=== PATIENT | female | born 1980 | race Caucasian/White ===

== ENCOUNTER 2016-11-06 12:12 | Emergency (ER) | payer SELFPAY ==
[~2016-11-06] VITALS: Ht 170.2 cm; Wt 61.2 kg
[2016-11-06] MEDS ORDERED: ONDANSETRON PF 4 MG/2 ML VIAL. IV ONE (14:30)
[2016-11-06] MEDS ORDERED: IV NORMAL SALINE 1000ML BAG 1,000 ML IV ONE (14:30)
[2016-11-06] MEDS ORDERED: HYDROmorphone 2 MG/ML VIAL IV/SQ PRN (14:30)
[2016-11-06 14:55] LABS: BASO % 0 % (0-3); EOS % 2 % (0-3); HEMATOCRIT 41.5 % (36.0-47.0); HEMOGLOBIN 13.7 g/dL (12.0-15.5); LYMPH # 1.5 x10^3/uL (1.0-4.8); LYMPH % 20 % (24-48); MEAN CORPUSCULAR HEMOGLOBIN 31 pg (25-35); MEAN CORPUSCULAR HGB CONC 33 g/dL (31-37); MEAN CORPUSCULAR VOLUME 93 fL (79-100); MONO % 4 % (0-9); NEUT % 74 % (31-73); PLATELET COUNT 338 x10^3/uL (140-400); RED BLOOD COUNT 4.47 x10^6/uL (3.50-5.40); WHITE BLOOD COUNT 7.4 x10^3/uL (4.0-11.0)
[2016-11-06 14:56] LABS: BILIRUBIN,URINE NEGATIVE (NEG); GLUCOSE,URINE NEGATIVE (NEG); NITRITE,URINE NEGATIVE (NEG); PH,URINE 6.5; PROTEIN,URINE NEGATIVE (NEG-TRACE); UROBILINOGEN,URINE 0.2 mg/dL (0.2 mg/dL)
--- NOTE | 2016-11-06 15:00 | PHYS DOC ---
Past Medical History Past Medical History: Migraines, Seizure Alcohol Use: None Drug Use: Marijuana Adult General Chief Complaint Chief Complaint: PAIN ON URINATION HPI HPI 36 yo F presenting to the ED today with pain on urination and bilateral flank pain. She was seen previously in [place] and diagnosed with urinary tract infection. She was started on ciprofloxacin however has not had improved relief. The pain is moderate intermittent nonradiating without alleviating factors. She does have dysuria and polyuria as well. She denies fevers or chills she denies nausea or vomiting. Review of systems is negative for migratory pain, chest pain shortness of breath nausea or vomiting. All other review of systems is negative unless otherwise noted in history of present illness. ED course: 36-year-old female presenting to the emergency department today with polyuria and bilateral flank pain suggestive of urinary tract infection/ pyelonephritis. Patient given IV Rocephin fluids nausea and pain medications in the emergency department. Urinalysis ordered along with blood work. Urinalysis and blood work unremarkable including a negative test. Patient feeling better on reexamination. It is unclear at this time whether because of the patient's ciprofloxacin use the patient's urinalysis is not suggestive of infection. Given her changing symptomatology I will initiate Bactrim therapy and have her follow-up with her doctor in the next 4-5 days. They were to return if their symptoms worsened or if they were concerned for any reason. Face -to-face discharge instructions and return precautions were given. Patient's questions were answered to their satisfaction. Patient is comfortable plan. Review of Systems Review of Systems SEE ABOVE. Current Medications Current Medications Current Medications Medications (Trade) Dose Ordered Sig/Noreen Start Time Stop Time Status Last Admin Dose Admin Ceftriaxone Sodium 50 ml @ 100 mls/hr 1X ONCE 11/06/16 14:30 11/06/16 14:59 DC 11/06/16 14:51 100 MLS/HR Hydromorphone HCl (Dilaudid) 0.5 mg PRN Q15MIN PRN 11/06/16 14:30 11/07/16 14:29 Ondansetron HCl (Zofran) 4 mg 1X ONCE 11/06/16 14:30 11/06/16 14:31 DC 11/06/16 14:50 4 MG Sodium Chloride 1,000 ml @ 1,000 mls/hr 1X ONCE 11/06/16 14:30 11/06/16 15:29 11/06/16 14:51 1,000 MLS/HR Allergies Allergies Allergies Coded Allergies Type Severity Reaction Last Updated Verified levetiracetam Allergy Intermediate 11/06/16 Yes metoclopramide Allergy Intermediate 11/06/16 Yes morphine Adverse Reaction Intermediate Itching 11/06/16 Yes Physical Exam Physical Exam SEE ABOVE Constitutional: Well developed, well nourished, no acute distress, non-toxic appearance. [] HENT: Normocephalic, atraumatic, bilateral external ears normal, oropharynx moist, no oral exudates, nose normal. [] Eyes: PERRLA, EOMI, conjunctiva normal, no discharge. [] Neck: Normal range of motion, no tenderness, supple, no stridor. [] Cardiovascular:Heart rate regular rhythm, no murmur [] Lungs & Thorax: Bilateral breath sounds clear to auscultation [] Abdomen: Bowel sounds normal, soft, no tenderness, no masses, no pulsatile masses. [] Skin: Warm, dry, no erythema, no rash. [] Back: mild bilateral CVA tenderness. Extremities: No tenderness, no cyanosis, no clubbing, ROM intact, no edema. [] Neurologic: Alert and oriented X 3, normal motor function, normal sensory function, no focal deficits noted. [] Psychologic: Affect normal, judgement normal, mood normal. [] Current Patient Data Vital Signs Vital Signs Date Time Temp Pulse Resp B/P (MAP) Pulse Ox O2 Delivery O2 Flow Rate FiO2 11/06/16 13:45 98.1 88 18 159/113 (128) 100 Room Air 98.1 Lab Values Laboratory Tests Test 11/06/16 13:02 11/06/16 14:40 POC Urine HCG, Qualitative Hcg negative (Negative) White Blood Count 7.4 x10^3/uL (4.0-11.0) Red Blood Count 4.47 x10^6/uL (3.50-5.40) Hemoglobin 13.7 g/dL (12.0-15.5) Hematocrit 41.5 % (36.0-47.0) Mean Corpuscular Volume 93 fL (79-100) Mean Corpuscular Hemoglobin 31 pg (25-35) Mean Corpuscular Hemoglobin Concent 33 g/dL (31-37) Red Cell Distribution Width 16.0 % (11.5-14.5) H Platelet Count 338 x10^3/uL (140-400) Neutrophils (%) (Auto) 74 % (31-73) H Lymphocytes (%) (Auto) 20 % (24-48) L Monocytes (%) (Auto) 4 % (0-9) Eosinophils (%) (Auto) 2 % (0-3) Basophils (%) (Auto) 0 % (0-3) Neutrophils # (Auto) 5.5 x10^3uL (1.8-7.7) Lymphocytes # (Auto) 1.5 x10^3/uL (1.0-4.8) Monocytes # (Auto) 0.3 x10^3/uL (0.0-1.1) Eosinophils # (Auto) 0.1 x10^3/uL (0.0-0.7) Basophils # (Auto) 0.0 x10^3/uL (0.0-0.2) Urine Collection Type Unknown Urine Color Yellow Urine Clarity Clear Urine pH 6.5 Urine Specific [place] 1.015 Urine Protein Negative mg/dL (NEG-TRACE) Urine Glucose (UA) Negative mg/dL (NEG) Urine Ketones (Stick) Negative mg/dL (NEG) Urine Blood Negative (NEG) Urine Nitrite Negative (NEG) Urine Bilirubin Negative (NEG) Urine Urobilinogen Dipstick 0.2 mg/dL (0.2 mg/dL) Urine Leukocyte Esterase Negative (NEG) Urine RBC 0 /HPF (0-2) Urine WBC Occ /HPF (0-4) Urine Squamous Epithelial Cells Mod /LPF Urine Bacteria Few /HPF (0-FEW) Urine Mucus Slight /LPF Sodium Level 141 mmol/L (136-145) Potassium Level 4.9 mmol/L (3.5-5.1) Chloride Level 106 mmol/L (98-107) Carbon Dioxide Level 28 mmol/L (21-32) Anion Gap 7 (6-14) Blood Urea Nitrogen 12 mg/dL (7-20) Creatinine 0.7 mg/dL (0.6-1.0) Estimated GFR (Cockcroft-Gault) 95.8 Glucose Level 98 mg/dL (70-99) Calcium Level 9.0 mg/dL (8.5-10.1) Laboratory Tests 11/06/16 14:40 Laboratory Tests 11/06/16 14:40 EKG EKG [] Radiology/Procedures Radiology/Procedures [] Course & Med Decision Making Course & Med Decision Making Pertinent Labs and Imaging studies reviewed. (See chart for details) [] Dragon Disclaimer Dragon Disclaimer This electronic medical record was generated, in whole or in part, using a voice recognition dictation system. Departure Departure Impression: Primary Impression: Dysuria Disposition: HOME, SELF-CARE Condition: STABLE Referrals: NO PCP (PCP) MESSI WEINER MD Patient Instructions: Urinary Tract Infection Additional Instructions: Thank you for allowing us to participate in your care today. Followup with your primary care physician in 3 days if your symptoms do not improve. Call your Primary Doctor tomorrow and inform them of your visit today. If you do not have a primary care provider you can ask for a list of our primary care providers. Return to the emergency department you have any new or concerning findings. This should be evaluated by the primary care physician and any necessary consulting services for continued management within a few days after discharge. Return to emergency room if you have any new or concerning symptoms including but not limited to fever, chills, nausea, vomiting, intractable pain, any new rashes, chest pain, shortness of air, uncontrolled bleeding, difficulty breathing, and/or vision loss. Scripts Ondansetron (ZOFRAN ODT) 4 Mg Tab.rapdis 1 TAB SL PRN Q8HRS Y for NAUSEA, #6 TAB Prov: LUIS PEREZ MD 11/06/16 Hydrocodone Bit/Acetaminophen (HYDROCODONE-APAP 5-325 ) 1 Each Tablet 1 TAB PO PRN Q6HRS Y for PAIN, #15 TAB 0 Refills Be careful as this medication may cause you to be drowsy or tired. Do not drive on this medication. Prov: LUIS PEREZ MD 11/06/16 Sulfamethoxazole/Trimethoprim (BACTRIM DS TABLET) 1 Each Tablet 1 TAB PO BID, #14 TAB Prov: LUIS PEREZ MD 11/06/16 LUIS PEREZ MD Nov 06, 2016 15:00
[2016-11-06 15:06] LABS: CREATININE 0.7 mg/dL (0.6-1.0); GFR 95.8; POTASSIUM 4.9 mmol/L (3.5-5.1)
[2016-11-06 15:13] LABS: BACTERIA,URINE FEW /HPF (0-FEW); RBC,URINE 0 /HPF (0-2); SQUAMOUS EPITHELIAL CELL,UR MOD /LPF; WBC,URINE OCC /HPF (0-4)
[2016-11-06] MEDS ORDERED: ONDA4TAB10 SL (15:18)
[2016-11-06] MEDS ORDERED: HYDR-2758 PO (15:18)
[2016-11-06] MEDS ORDERED: SULF1TAB24 PO (15:18)
[2016-11-06 15:50] VITALS: BP 142/72
== END 2016-11-06 16:09 | disposition home or self-care (01) ==
LOC: ER 12:12
DX: R30.0 Dysuria (principal); R10.9 Unspecified abdominal pain; R35.8 Other polyuria; G43.909 Migraine, unspecified, not intractable, without status migrainosus; Z88.8 Allergy status to other drugs, medicaments and biological substances; Z88.5 Allergy status to narcotic agent
CPT/HCPCS: 36415; 80048; 81001; 81025; 85025; 96365; 96375; 99284; J0690; J1170; J2405; J7030

== ENCOUNTER 2016-11-09 11:26 | Emergency (ER) | payer SELFPAY ==
[~2016-11-09] VITALS: Ht 170.2 cm; Wt 61.2 kg
[~2016-11-09 11:26] MED LIST: HYDR-2758 PO; ONDA4TAB10 SL; SULF1TAB24 PO
[2016-11-09] MEDS ORDERED: IV NORMAL SALINE 1000ML BAG 1,000 ML IV ONE (11:45)
[2016-11-09] MEDS ORDERED: KETOROLAC TROMETHAMINE 30 MG/ML INJ. IV ONE (11:45)
--- NOTE | 2016-11-09 11:53 | PHYS DOC ---
Past Medical History Past Medical History: Migraines, Seizure Alcohol Use: None Drug Use: Marijuana Adult General Chief Complaint Chief Complaint: ABDOMINAL PAIN HPI HPI Patient is a 36 year old female who presents with abdominal pain. Patient states last Wednesday she was diagnosed with UTI to urgent care and prescribed Keflex however throughout the week the pain got worse therefore came to [place] ER on Wednesday and was reevaluated and discharged on Bactrim. Patient returns today for increasing abdominal pain and symptoms. Patient states she's had low-grade fevers at home as been taking Tylenol as needed. Patient has been taking the Bactrim as prescribed. Patient denies any nausea or vomiting. Patient denies any chest pain or shortness of breath. Patient and plans of generalized abdominal pain. Patient denies any vaginal discharge and denies . Review of Systems Review of Systems GEN: Denies fevers, chills, sweats HEENT: Denies blurred vision, sore throat CV: Denies chest pain RESP: Denies shortness of air, cough GI: Abdominal pain NEURO: Denies confusion, dizziness MSK: Denies weakness, joint pain/swelling Current Medications Current Medications Current Medications Medications (Trade) Dose Ordered Sig/Noreen Start Time Stop Time Status Last Admin Dose Admin Fentanyl Citrate (Fentanyl 2ml Vial) 50 mcg 1X ONCE 11/09/16 14:00 11/09/16 14:01 DC 11/09/16 13:53 50 MCG Iohexol (Omnipaque 300 Mg/ml) 75 ml 1X ONCE 11/09/16 12:30 11/09/16 12:31 DC 11/09/16 12:35 75 ML Ketorolac Tromethamine (Toradol) 30 mg 1X ONCE 11/09/16 11:45 11/09/16 11:50 DC 11/09/16 12:03 30 MG Sodium Chloride 1,000 ml @ 1,000 mls/hr 1X ONCE 11/09/16 11:45 11/09/16 12:44 DC 11/09/16 12:00 1,000 MLS/HR Allergies Allergies Allergies Coded Allergies Type Severity Reaction Last Updated Verified levetiracetam Allergy Intermediate 11/06/16 Yes metoclopramide Allergy Intermediate 11/06/16 Yes morphine Adverse Reaction Intermediate Itching 11/06/16 Yes Physical Exam Physical Exam GEN.: No apparent distress. Alert and oriented. HEENT: Head is normocephalic, atraumatic NECK: Supple. LUNGS: CTAB. HEART: RRR, S1, S2 present. Peripheral pulses intact ABDOMEN: Soft, generalized tenderness palpation, no focal tenderness, no rebound tenderness nondistended. Positive bowel sounds. EXTREMITIES: Without any cyanosis. NEUROLOGIC: Normal speech, normal tone PSYCHIATRIC: Normal affect, normal mood. SKIN: No ulcerations Current Patient Data Vital Signs Vital Signs Date Time Temp Pulse Resp B/P (MAP) Pulse Ox O2 Delivery O2 Flow Rate FiO2 11/09/16 16:49 81 18 122/84 (97) 100 Room Air 11/09/16 11:30 98.3 98.3 Lab Values Laboratory Tests Test 11/09/16 10:43 11/09/16 11:30 11/09/16 11:50 11/09/16 13:02 POC Urine HCG, Qualitative Hcg negative (Negative) Urine Collection Type Unknown Urine Color Yellow Urine Clarity Cloudy Urine pH 7.0 Urine Specific [place] 1.010 Urine Protein Negative mg/dL (NEG-TRACE) Urine Glucose (UA) Negative mg/dL (NEG) Urine Ketones (Stick) Negative mg/dL (NEG) Urine Blood Negative (NEG) Urine Nitrite Negative (NEG) Urine Bilirubin Negative (NEG) Urine Urobilinogen Dipstick 0.2 mg/dL (0.2 mg/dL) Urine Leukocyte Esterase Trace (NEG) Urine RBC 0 /HPF (0-2) Urine WBC 1-4 /HPF (0-4) Urine Squamous Epithelial Cells Many /LPF Urine Bacteria Moderate /HPF (0-FEW) Urine Opiates Screen Pos (NEG) Urine Methadone Screen Neg (NEG) Urine Barbiturates Neg (NEG) Urine Phencyclidine Screen Neg (NEG) Urine Amphetamine/Methamphetamine Neg (NEG) Urine Benzodiazepines Screen Neg (NEG) Urine Cocaine Screen Neg (NEG) Urine Cannabinoids Screen Pos (NEG) Urine Ethyl Alcohol Neg (NEG) White Blood Count 6.6 x10^3/uL (4.0-11.0) Red Blood Count 4.51 x10^6/uL (3.50-5.40) Hemoglobin 13.7 g/dL (12.0-15.5) Hematocrit 41.6 % (36.0-47.0) Mean Corpuscular Volume 92 fL (79-100) Mean Corpuscular Hemoglobin 30 pg (25-35) Mean Corpuscular Hemoglobin Concent 33 g/dL (31-37) Red Cell Distribution Width 16.1 % (11.5-14.5) H Platelet Count 339 x10^3/uL (140-400) Neutrophils (%) (Auto) 64 % (31-73) Lymphocytes (%) (Auto) 23 % (24-48) L Monocytes (%) (Auto) 7 % (0-9) Eosinophils (%) (Auto) 5 % (0-3) H Basophils (%) (Auto) 1 % (0-3) Neutrophils # (Auto) 4.2 x10^3uL (1.8-7.7) Lymphocytes # (Auto) 1.5 x10^3/uL (1.0-4.8) Monocytes # (Auto) 0.5 x10^3/uL (0.0-1.1) Eosinophils # (Auto) 0.3 x10^3/uL (0.0-0.7) Basophils # (Auto) 0.1 x10^3/uL (0.0-0.2) Sodium Level 138 mmol/L (136-145) Potassium Level 4.9 mmol/L (3.5-5.1) Chloride Level 102 mmol/L (98-107) Carbon Dioxide Level 25 mmol/L (21-32) Anion Gap 11 (6-14) Blood Urea Nitrogen 10 mg/dL (7-20) Creatinine 0.9 mg/dL (0.6-1.0) Estimated GFR (Cockcroft-Gault) 71.7 BUN/Creatinine Ratio 11 (6-20) Glucose Level 106 mg/dL (70-99) H Calcium Level 8.5 mg/dL (8.5-10.1) Total Bilirubin 0.1 mg/dL (0.2-1.0) L Aspartate Amino Transferase (AST) 18 U/L (15-37) Alanine Aminotransferase (ALT) 22 U/L (14-59) Alkaline Phosphatase 58 U/L (46-116) Total Protein 7.5 g/dL (6.4-8.2) Albumin 3.9 g/dL (3.4-5.0) Albumin/Globulin Ratio 1.1 (1.0-1.7) Lipase 116 U/L (73-393) Lactic Acid Level 1.9 mmol/L (0.4-2.0) Laboratory Tests 11/09/16 11:50 Laboratory Tests 11/09/16 11:50 Microbiology 11/09/16 Wet Prep - Final, Complete EKG EKG [] Radiology/Procedures Radiology/Procedures CT abd and pelvis: Impression: 1. Mildly distended gallbladder with mild prominent appearing common bile duct. Correlate with lab values. Otherwise no acute intra-abdominal findings.[] Ultrasound of the right upper quadrant: Mildly dilated common bile duct but no signs of acute cholecystitis Ultrasound the pelvis: NAD Course & Med Decision Making Course & Med Decision Making Pertinent Labs and Imaging studies reviewed. (See chart for details) ED course Patient was seen and examined the emergency room, CBC, CMP, UA, urine , CT scan abdomen and pelvis were ordered 1725: Lab results and ultrasound, CT scan results were discussed with the patient. Patient states she's having no abnormal vaginal discharge and the vaginal discharge she's having is normal for her. Patient denies any high risk sexual intercourse and states she's been with the same partner for the past couple years. Patient denies any history of STDs. Offer the patient prophylactic treatment for the STDs she has declined and explained to her that we will notify her if they are positive. Patient is wanted to go home. Recommended short-term follow-up with her [employer] and PCP. MDM: After reviewing the chart, CC/HPI/PMH, physical exam, [lab results], [ radiological results], I do not believe the patient has an intra-abdominal emergency warranting further workup and/or admission at this time. Patient is stable for discharge. Patient is ready go home. Recommended patient continue with her antibiotics treatment for her UTI. Additional verbal discharge instructions were provided to the patient and that if symptoms get worse or any new symptoms arise that are worrisome to the patient she is to return to the emergency room immediately [] Dragon Disclaimer Dragon Disclaimer This electronic medical record was generated, in whole or in part, using a voice recognition dictation system. Departure Departure Impression: Primary Impression: Abdominal pain Disposition: 01 HOME, SELF-CARE Condition: IMPROVED Referrals: NO PCP (PCP) Patient Instructions: Abdominal Pain, [id number] Additional Instructions: Please follow-up with your family physician in the next one to 2 days, please continue the antibiotics as previously prescribed, return if symptoms increase. MITZY ESPITIA DO Nov 09, 2016 11:53
[2016-11-09 12:07] LABS: BARBITURATES NEG (NEG); BENZODIAZEPINES NEG (NEG); CANNABINOIDS POS (NEG); COCAINE NEG (NEG); METHADONE NEG (NEG); OPIATES POS (NEG); PHENCYCLIDINE NEG (NEG)
[2016-11-09 12:09] LABS: BILIRUBIN,URINE NEGATIVE (NEG); GLUCOSE,URINE NEGATIVE (NEG); NITRITE,URINE NEGATIVE (NEG); PROTEIN,URINE NEGATIVE (NEG-TRACE); UROBILINOGEN,URINE 0.2 mg/dL (0.2 mg/dL)
[2016-11-09 12:10] LABS: BASO # 0.1 x10^3/uL (0.0-0.2); BASO % 1 % (0-3); EOS % 5 % (0-3); HEMATOCRIT 41.6 % (36.0-47.0); HEMOGLOBIN 13.7 g/dL (12.0-15.5); LYMPH # 1.5 x10^3/uL (1.0-4.8); LYMPH % 23 % (24-48); MEAN CORPUSCULAR HEMOGLOBIN 30 pg (25-35); MEAN CORPUSCULAR HGB CONC 33 g/dL (31-37); MEAN CORPUSCULAR VOLUME 92 fL (79-100); MONO % 7 % (0-9); NEUT % 64 % (31-73); PLATELET COUNT 339 x10^3/uL (140-400); RED BLOOD COUNT 4.51 x10^6/uL (3.50-5.40); RED CELL DISTRIBUTION WIDTH 16.1 % (11.5-14.5); WHITE BLOOD COUNT 6.6 x10^3/uL (4.0-11.0)
[2016-11-09 12:12] LABS: CALCIUM 8.5 mg/dL (8.5-10.1); CREATININE 0.9 mg/dL (0.6-1.0); GFR 71.7; POTASSIUM 4.9 mmol/L (3.5-5.1)
[2016-11-09 12:18] LABS: ALBUMIN 3.9 g/dL (3.4-5.0); ALBUMIN/GLOBULIN RATIO 1.1 (1.0-1.7); TOTAL BILIRUBIN 0.1 mg/dL (0.2-1.0); TOTAL PROTEIN 7.5 g/dL (6.4-8.2)
[2016-11-09 12:21] LABS: BACTERIA,URINE MODERATE /HPF (0-FEW); RBC,URINE 0 /HPF (0-2); SQUAMOUS EPITHELIAL CELL,UR MANY /LPF
[2016-11-09] MEDS ORDERED: IOHEXOL 300 MG/ML 75 ML VIAL IV ONE (12:30)
--- NOTE | 2016-11-09 13:22 | RAD ---
Examination: CT of the abdomen pelvis with IV contrast History: History of abdominal pain, nausea, vomiting Technique: Axial CT images of the abdomen pelvis was performed with IV contrast with coronal and sagittal reformats are performed. Comparison: None available PQRS Compliance Statement: One or more of the following individualized dose reduction techniques were utilized for this examination: 1. Automated exposure control 2. Adjustment of the mA and/or kV according to patient size 3. Use of iterative reconstruction technique Findings: Visualized bibasal lungs grossly appears unremarkable. No evidence of free air identified in the abdomen. The visualized liver, spleen, adrenals grossly appears unremarkable. The gallbladder is mildly distended. The stomach is mildly distended. The visualized pancreas grossly appears unremarkable. There is mild prominent appearing common bile duct measuring 7 mm. The visualized pancreas grossly appears unremarkable. The bilateral kidneys enhance symmetrically. The stomach is mildly distended. The small bowel is nondilated. Feces and gas noted in the colon. The appendix is normal. Feces and gas noted in the colon throughout. Urinary bladder is mildly distended. Intrauterine contraceptive device is identified. Small cystic structure identified in the right adnexa measuring 1.2 cm likely an ovarian follicle. No evidence of free fluid identified in the pelvis. The caliber of the aorta grossly appears unremarkable. The bilateral kidneys enhance symmetrically. No evidence of lytic bony destructive lesion. Impression: 1. Mildly distended gallbladder with mild prominent appearing common bile duct. Correlate with lab values. Otherwise no acute intra-abdominal findings.
[2016-11-09] MEDS ORDERED: fentaNYL PF VIAL 100 MCG/2 ML VIAL IV ONE (14:00)
--- NOTE | 2016-11-09 16:59 | RAD ---
Examination: Ultrasound abdomen right upper quadrant History: History of abdominal pain Comparison: None available Findings: The visualized pancreas grossly appears unremarkable. The echogenicity of the liver grossly appears unremarkable. The right lobe of the liver measures 14.3 cm. No evidence of gallstones identified. The common bile duct measures 6.5 mm and slightly prominent and mildly dilated. The gallbladder wall thickness measures 1.5 mm. The right kidney measures 10.6 cm in length. Impression: 1. Minimally prominent common bile duct measuring 6.5 mm. Correlate with liver function tests. 2. No evidence of gallstones.
--- NOTE | 2016-11-09 17:02 | RAD ---
Examination: Ultrasound pelvis with transvaginal ultrasound exam History: History of pain Comparison: None available Findings: The uterus measures 7.8 x 4.8 x 3.8 cm There is echogenicity identified in the endometrium likely intrauterine contraceptive device. Trace fluid in the endometrium. The right ovary measures 2.5 x 2.4 x 1.5 cm. Blood flow identified in the right ovary. Left ovary measures 3.6 x1.7 x 1.9 cm blood flow identified in the left ovary. Multiple follicles identified in the right and left ovaries with the largest in the left ovary. Impression: Unremarkable visualized exam.
[2016-11-09 17:42] VITALS: BP 118/80
== END 2016-11-09 17:47 | disposition home or self-care (01) ==
LOC: ER 11:26
DX: R10.84 Generalized abdominal pain (principal); R50.9 Fever, unspecified; G43.909 Migraine, unspecified, not intractable, without status migrainosus; Z88.5 Allergy status to narcotic agent; Z88.8 Allergy status to other drugs, medicaments and biological substances; Z88.1 Allergy status to other antibiotic agents
CPT/HCPCS: 36415; 74177; 76705; 76830; 76856; 80053; 80307; 81001; 81025; 83605; 83690; 85025; 87040; 87491; 87591; 96361; 96374; 96375; 99285; J1885; J3010; J7030; Q0111; Q9967; 87086; G0479